=== PATIENT | female | born 1955 | race Caucasian/White ===

== ENCOUNTER 2020-01-16 17:12 | Emergency (ER) | payer BC, SELFPAY ==
[2020-01-16 17:18] VITALS: BP 151/87; PULSE 102; RESP 16; TEMP 36.9; O2SAT 98
--- NOTE | 2020-01-16 17:31 | ED.GENADULT ---
HPI - General Adult General Chief complaint: Upper Respiratory Infection Stated complaint: sinus infection Time Seen by Provider: 01/16/20 17:31 Source: patient and RN notes reviewed Mode of arrival: ambulatory Limitations: no limitations History of Present Illness HPI narrative: 64-year-old female presents with complaints of upper respiratory infection, sneezing, some facial congestion, facial pressure, and headache (not the worst of her life) for the past 14 days. Meclizine and OTC medication without relief. Symptoms increased over the past 4 days with intermittent sore throat and dizziness when bending over (none now). No facial swelling. Intermittent dry cough without chest congestion. Nasal congestion without rhinorrhea. Sore throat. Pain is bilateral. Hurts to swallow. No high fevers, drooling, neck or throat swelling. No voice change. No nausea, vomiting, or abdominal pain. Tolerating liquids well. Denies chills, dyspnea, difficulty swallowing, jaw pain, dental pain, foreign body sensation, and rash. No chest pain or shortness of breath. Hysterectomy. Remains active. The patient reports she had a POSITIVE antibiotic test on 12/11/19 and completed appropriate quarantine but was diagnosed with COVID-19. The patient reports she is not waiting for the results of a COVID-19 lab test. The patient reports she do not have fever, chills, weakness, fatigue, myalgia, or facial swelling. The patient reports she do not have a new or worsening cough or shortness of breath. Denies chest pain. The patient reports she do not have any rhinorrhea, nausea, vomiting, abdominal pain, and diarrhea. Tolerating po intake well. Denies recent traveling. Denies concerns for COVID-19 or exposures been home since [id number] order except for essential household needs, medical needs (extremely careful at site per patient is where she had antibiotics tested), and return home. At this time, patient is not suspected of having COVID-19. Some parts of this dictation were generated by voice recognition software and may contain typographical and/or grammatical inaccuracies. Related Data Home Medications Medication Instructions Recorded Confirmed amitriptyline 25 mg PO HS 01/16/20 01/16/20 atorvastatin 20 mg PO DAILY 01/16/20 01/16/20 azathioprine 50 mg PO DAILY 01/16/20 01/16/20 insulin detemir U-100 [Levemir 30 unit SUBCUT HS 01/16/20 01/16/20 FlexTouch U-100 Insuln] levothyroxine 150 mcg PO DAILY 01/16/20 01/16/20 metformin 1,000 mg PO BID 01/16/20 01/16/20 semaglutide [Ozempic] 0.25 mg SUBCUT WEEKLY 01/16/20 01/16/20 spironolactone 25 mg PO BID 01/16/20 01/16/20 tramadol 50 mg PO Q6H PRN 01/16/20 01/16/20 venlafaxine 150 mg PO DAILY 01/16/20 01/16/20 Allergies Allergy/AdvReac Type Severity Reaction Status Date / Time latex Allergy Unknown Rash Verified 01/16/20 17:29 adhesive tape AdvReac Mild Other Verified 01/16/20 17:29 Review of Systems Review of Systems: Narrative: CONSTITUTIONAL: Denies fever, chills, sweats. EYES: Denies visual changes, redness, discharge. ENT: Complains of congestion facial congestion and pressure, intermittent sore throat. Denies rhinorrhea, otalgia. CARDIOVASCULAR: Denies chest pain, palpitations, edema. RESPIRATORY: Denies dyspnea, wheezing. Complains of intermittent dry cough. GASTROINTESTINAL: Denies abdominal pain, nausea, vomiting, diarrhea. GENITOURINARY: Denies dysuria, hematuria, abnormal discharge SKIN: Denies rash or itching. MUSCULOSKELETAL: Denies acute back pain, joint pain, or myalgia. NEUROLOGIC: Denies numbness, or focal weakness. Complains of intermittent RIVERA. PSYCHIATRIC: Denies anxiety or depression. All other systems reviewed are negative, except as documented in HPI and below. [facility] Past Medical History Medical History (Updated 01/17/20 @ 00:00 by Background Daemon) Autoimmune hepatitis Depression Diabetes Hypercholesteremia Hypertension Hypothyroidism Melanoma Rheumatoid
== END 2020-01-16 17:54 | disposition home or self-care (01) ==
PROVIDERS: Emergency Provider Nurse Practitioner Family; PCP Internal Medicine
DX: J32.9 Chronic sinusitis, unspecified (principal); E11.9 Type 2 diabetes mellitus without complications; I10 Essential (primary) hypertension; E78.00 Pure hypercholesterolemia, unspecified; E03.9 Hypothyroidism, unspecified; K75.4 Autoimmune hepatitis; I01.1 Acute rheumatic endocarditis; Z87.440 Personal history of urinary (tract) infections; Z79.84 Long term (current) use of oral hypoglycemic drugs; Z79.4 Long term (current) use of insulin
CPT/HCPCS: 99213; G0463

== ENCOUNTER 2021-03-19 13:09 | Emergency (ER) | payer BC, SELFPAY ==
--- NOTE | 2021-03-19 13:15 | ED.URI ---
HPI - URI/Sore Throat General Chief Complaint: Upper Respiratory Infection Stated Complaint: sinus and raw nose Time Seen by Provider: 03/19/21 13:25 Source: patient and RN notes reviewed Mode of arrival: ambulatory Limitations: no limitations History of Present Illness HPI Narrative: 65-year-old female presents concern for sinus congestion, nasal drainage, sinus pain for 7 days. She reports she has been using [id number] medications, including nasal rinses and Vaseline in the nose with little relief. She denies fever, cough, shortness of breath, sore throat, body aches, chills, sweats. MD elicited complaint: nasal congestion Related Data Home Medications Medication Instructions Recorded Confirmed atorvastatin 20 mg PO DAILY 01/16/20 03/19/21 azathioprine 150 mg PO DAILY 01/16/20 03/19/21 insulin detemir U-100 [Levemir 30 unit SUBCUT HS 01/16/20 03/19/21 FlexTouch U-100 Insuln] metformin 1,000 mg PO BID 01/16/20 03/19/21 semaglutide [Ozempic] 0.25 mg SUBCUT WEEKLY 01/16/20 03/19/21 spironolactone 50 mg PO BID 01/16/20 03/19/21 tramadol 150 mg PO Q8H PRN 01/16/20 03/19/21 venlafaxine 150 mg PO DAILY 01/16/20 03/19/21 ergocalciferol (vitamin D2) 1,250 mcg PO WEEKLY 03/19/21 03/19/21 levothyroxine 137 mcg PO DAILY 03/19/21 03/19/21 Allergies Allergy/AdvReac Type Severity Reaction Status Date / Time latex Allergy Unknown Rash Verified 03/19/21 13:19 nitrofurantoin Allergy Unknown Unknown Verified 03/19/21 13:19 [From Macrodantin] adhesive tape AdvReac Mild Other Verified 03/19/21 13:19 Review of Systems Review of Systems: CONSTITUTIONAL: Denies malaise, chills, sweats, or fever. EYES: Denies visual changes, redness, or discharge. ENT: Reports rhinorrhea, congestion, sinus pain. Denies otalgia and sore throat. CARDIOVASCULAR: Denies chest pain, palpitations, or edema. RESPIRATORY: Denies cough or dyspnea. GASTROINTESTINAL: Denies abdominal pain, nausea, vomiting, diarrhea SKIN: Denies rash or itching. MUSCULOSKELETAL: Denies myalgia. NEUROLOGIC: Denies headache. All systems reviewed & are unremarkable except as noted in HPI and below PMFSH Past Medical History Medical History (Updated 03/19/21 @ 13:33 by Leah Castillo NP) Autoimmune hepatitis Depression Diabetes Hypercholesteremia Hypertension Hypothyroidism Melanoma Rheumatoid aortitis TMJ (temporomandibular joint disorder) surgery Umbilical hernia UTI (urinary tract infection) Surgical History Surgical History (Updated 01/16/20 @ 18:00 by MELISSA Buchanan) History of arthroscopic knee surgery Bilateral History of cholecystectomy History of hernia surgery umbilical History of hysterectomy History of tonsillectomy Hx of appendectomy Family History Family History Other Diabetes mellitus Family history of arthritis Family history of elevated blood lipids Family history of heart disease in male family member before age 55 Family history of malignant neoplasm Hypertension Social History Social History (Updated 01/16/20 @ 17:52 by MELISSA Buchanan) Smoking status: Never smoker Second hand tobacco smoke exposure: Yes Alcohol intake: never Substance use: never Gender identity (if verbalized by the patient): Female Comments At time of signature, agree with nursing past medical, surgical, social and family history. There is no relevant family history pertinent to the presenting complaint Exam Narrative: GENERAL: Well-appearing, well-nourished, and in no acute distress. HEAD: Normocephalic EYES: PERRLA, conjunctivae clear ENT: Nares clear, turbinates edematous and erythematous, purulent discharge. Mucous membranes moist. TM pearly callejas with dull light reflex bilaterally; no tragal tenderness. Oropharynx not erythematous without lesions. Tonsils not enlarged and without exudate, no drooling, no hoarseness, no trismus, uvula midline. NECK: Supple.
[2021-03-19 13:21] VITALS: BP 148/81; PULSE 117; RESP 18; TEMP 36.7; O2SAT 98
[2021-03-19 13:23] VITALS: BP 148/81; PULSE 117; RESP 18; TEMP 36.7; O2SAT 98
== END 2021-03-19 13:35 | disposition home or self-care (01) ==
PROVIDERS: Emergency Provider Nurse Practitioner; PCP Internal Medicine
DX: J01.90 Acute sinusitis, unspecified (principal); K75.4 Autoimmune hepatitis; E11.9 Type 2 diabetes mellitus without complications; E78.00 Pure hypercholesterolemia, unspecified; F32.9 Major depressive disorder, single episode, unspecified; E03.9 Hypothyroidism, unspecified; I10 Essential (primary) hypertension; Z85.820 Personal history of malignant melanoma of skin; M06.9 Rheumatoid arthritis, unspecified
CPT/HCPCS: 99213; G0463

== ENCOUNTER 2022-03-05 13:30 | Emergency (ER) | payer MEDICARE, SELFPAY ==
--- NOTE | ~2022-03-05 | XR_ITS ---
EXAMINATION: XR ribs LT 2V DATE: 03/05/2022 13:57 INDICATION: Left anterior rib pain post fall in bathtub TECHNIQUE: 3 views of the left ribs were obtained. COMPARISON: None FINDINGS: No rib fractures identified. 2 small bilateral calcified pulmonary nodules along with numerous calcif ied splenic nodules consistent with old granulomatous disease. Visualized lungs are otherwise clear w ith no focal airspace opacities, pulmonary edema, pleural effusion or pneumothorax. Cholecystectomy c lips in right upper quadrant. Mild lumbar levorotoscoliosis. IMPRESSION: 1. No left rib fracture or acute cardiopulmonary disease. Reviewed, dictated and finalized at location B.
--- NOTE | 2022-03-05 13:34 | ED.GENADULT ---
HPI - General Adult General Chief complaint: Fall Stated complaint: Fell and hit side and ribs left side. Covid Time Seen by Provider: 03/05/22 14:08 Source: patient Mode of arrival: ambulatory Limitations: no limitations History of Present Illness HPI narrative: 66 old female presents concern for left rib pain, under the left breast. Reports this thinks she was getting out of the tub, she slipped and fell and landed on her left side. She reports pain is worse with deep breathing, coughing. She reports she was diagnosed with COVID yesterday. She has taken Tylenol. She denies any other injury from the fall MD complaint: Rib Pain Related Data Home Medications Medication Instructions Recorded Confirmed atorvastatin 20 mg tablet 20 mg PO DAILY 01/16/20 03/05/22 insulin detemir U-100 100 unit/mL 20 unit subcut HS 01/16/20 03/05/22 (3 mL) subcutaneous pen (Levemir FlexTouch U-100 Insulin) metformin 1,000 mg tablet 1,000 mg PO BID 01/16/20 03/05/22 semaglutide 0.25 mg or 0.5 mg (2 0.5 mg subcut WEEKLY 01/16/20 03/05/22 mg/1.5 mL) subcutaneous pen injector (Ozempic) venlafaxine 150 mg 150 mg PO QAM 01/16/20 03/05/22 capsule,extended release 24 hr ergocalciferol (vitamin D2) 1,250 1,250 mcg PO WEEKLY 03/19/21 03/05/22 mcg (50,000 unit) capsule alendronate 70 mg tablet 1 tablet PO WEEKLY 03/05/22 03/05/22 amitriptyline 25 mg tablet 1 tablet PO QHS 03/05/22 03/05/22 cyclobenzaprine 5 mg tablet 1 tablet PO TID PRN Muscle Spasm 03/05/22 03/05/22 levothyroxine 112 mcg tablet 1 tablet PO DAILY 03/05/22 03/05/22 losartan 100 mg tablet 1 tablet PO DAILY 03/05/22 03/05/22 metoprolol tartrate 50 mg tablet 1 tablet PO BID 03/05/22 03/05/22 nirmatrelvir 300 mg (150 mg x 6 tablet PO DAILY 03/05/22 03/05/22 2)-ritonavir 100 mg tablet (EUA) (Paxlovid 300 mg () venlafaxine 75 mg tablet 1 tablet PO QPM 03/05/22 03/05/22 Allergies Allergy/AdvReac Type Severity Reaction Status Date / Time latex Allergy Unknown Rash Verified 03/05/22 14:08 nitrofurantoin Allergy Unknown Unknown Verified 03/05/22 14:08 [From Macrodantin] adhesive tape AdvReac Mild Rash Verified 03/05/22 14:08 Review of Systems Review of Systems: CONSTITUTIONAL: Denies malaise, chills, sweats, or fever. CARDIOVASCULAR: Denies chest pain, palpitations, or edema. RESPIRATORY: Denies cough or dyspnea. GASTROINTESTINAL: Denies abdominal pain SKIN: Denies bruising, redness, swelling, open skin MUSCULOSKELETAL: Reports left rib pain under the left breast All systems reviewed & are unremarkable except as noted in HPI and below PMFSH Past Medical History Medical History (Updated 03/05/22 @ 14:17 by Leah Castillo NP) Autoimmune hepatitis Depression Diabetes Hypercholesteremia Hypertension Hypothyroidism Melanoma Rheumatoid aortitis TMJ (temporomandibular joint disorder) surgery Umbilical hernia UTI (urinary tract infection) Surgical History Surgical History (Updated 01/16/20 @ 18:00 by MELISSA Buchanan) History of arthroscopic knee surgery Bilateral History of cholecystectomy History of hernia surgery umbilical History of hysterectomy History of tonsillectomy Hx of appendectomy Family History Family History Other Diabetes mellitus Family history of arthritis Family history of elevated blood lipids Family history of heart disease in male family member before age 55 Family history of malignant neoplasm Hypertension Social History Social History (Updated 01/16/20 @ 17:52 by MELISSA Buchanan) Smoking status: Never smoker Second hand tobacco smoke exposure: Yes Alcohol intake: never Substance use: never Gender identity (if verbalized by the patient): Female Comments At time of signature, agree with nursing past medical, surgical, social and family history. There is no relevant family history pertinent to the presenting complaint Exam N
[2022-03-05 13:43] VITALS: BP 139/83; PULSE 73; RESP 16; TEMP 35.5; O2SAT 99
== END 2022-03-05 14:25 | disposition home or self-care (01) ==
PROVIDERS: Emergency Provider Nurse Practitioner; PCP Internal Medicine
DX: S20.212A Contusion of left front wall of thorax, initial encounter (principal); W01.0XXA Fall on same level from slipping, tripping and stumbling without subsequent striking against object, initial encounter; K75.4 Autoimmune hepatitis; E11.9 Type 2 diabetes mellitus without complications; E78.00 Pure hypercholesterolemia, unspecified; I10 Essential (primary) hypertension; E03.9 Hypothyroidism, unspecified; Z85.820 Personal history of malignant melanoma of skin; M06.9 Rheumatoid arthritis, unspecified; F32.A Depression, unspecified; Z79.4 Long term (current) use of insulin
CPT/HCPCS: 71100; 99213; G0463

== ENCOUNTER 2022-11-12 19:06 | Emergency (ER) | payer MEDICARE, SELFPAY ==
--- NOTE | ~2022-11-12 | XR_ITS ---
XR chest 2V DATE: 11/12/2022 19:42 INDICATION: Cough, shortness of breath. Weakness. TECHNIQUE: 2 views COMPARISON: 03/05/2022 left ribs FINDINGS: Heart size is within normal range. Is mild aortic tortuosity. No hilar or mediastinal enlar gement. No pulmonary infiltrate or consolidation, pleural effusion or pulmonary vascular congestion or pneumo thorax is detected. Diffuse osteopenia. IMPRESSION: No active cardiopulmonary disease Reviewed, dictated and finalized at location A.
[2022-11-12 19:08] VITALS: BP 112/97; PULSE 94; RESP 16; TEMP 36.3; O2SAT 98
--- NOTE | 2022-11-12 19:35 | ED.SOB ---
HPI - SOB/Dyspnea General Chief Complaint: Shortness of Breath/Dyspnea Stated Complaint: Shortness Of Breath Time Seen by Provider: 11/12/22 19:28 Source: patient, RN notes reviewed and old records reviewed Mode of arrival: ambulatory Limitations: no limitations History of Present Illness HPI Narrative: he67 year old female accompanied by spouse presents to express care with complaints of being short of breath and having cough, congestion and runny nose for about 3 days and feels weak.Patient reports that she recently had UTI and finished Cipro last week, states had colonoscopy prior to getting urinary tract infection. Patient states that she has had fevers chills sweats and low grade temps. Patient thinks maybe she still has ongoing bladder infection. has some urinary incontinency especially when she coughs. Patient states that she got in bathtub yesterday and couldn't get out and just had heart stents so he couldn't help her had to call fire department to get her out of tub. Patient reports that she has taken some Mucinex Tylenol for her symptoms. MD elicited complaint: shortness of breath and cough Pertinent past history: other (immunocompromised) Onset (ago): day(s) (3) Known history of: asthma and other (autoimmune hepatitis, biliary cirrhosis) Treatment prior to arrival: other (Mucinex, Tylenol) Related Data Home Medications Medication Instructions Recorded Confirmed atorvastatin 20 mg tablet 20 mg PO DAILY 01/16/20 11/12/22 insulin detemir U-100 100 unit/mL 20 unit subcut HS 01/16/20 11/12/22 (3 mL) subcutaneous pen (Levemir FlexTouch U-100 Insulin) metformin 1,000 mg tablet 1,000 mg PO BID 01/16/20 11/12/22 semaglutide 0.25 mg or 0.5 mg (2 0.5 mg subcut WEEKLY 01/16/20 11/12/22 mg/1.5 mL) subcutaneous pen injector (Ozempic) venlafaxine 150 mg 150 mg PO QAM 01/16/20 11/12/22 capsule,extended release 24 hr ergocalciferol (vitamin D2) 1,250 1,250 mcg PO WEEKLY 03/19/21 11/12/22 mcg (50,000 unit) capsule alendronate 70 mg tablet 1 tablet PO WEEKLY 03/05/22 11/12/22 amitriptyline 25 mg tablet 1 tablet PO QHS 03/05/22 11/12/22 cyclobenzaprine 5 mg tablet 1 tablet PO TID PRN Muscle Spasm 03/05/22 11/12/22 levothyroxine 112 mcg tablet 1 tablet PO DAILY 03/05/22 11/12/22 losartan 100 mg tablet 1 tablet PO DAILY 03/05/22 11/12/22 metoprolol tartrate 50 mg tablet 1 tablet PO BID 03/05/22 11/12/22 venlafaxine 75 mg tablet 1 tablet PO QPM 03/05/22 11/12/22 azathioprine 50 mg tablet mg 11/12/22 budesonide-formoterol HFA 160 inhalation 11/12/22 mcg-4.5 mcg/actuation aerosol inhaler (Symbicort) spironolactone 25 mg tablet mg 11/12/22 Allergies Allergy/AdvReac Type Severity Reaction Status Date / Time latex Allergy Unknown Rash Verified 03/05/22 14:08 nitrofurantoin Allergy Unknown Unknown Verified 03/05/22 14:08 [From Macrodantin] adhesive tape AdvReac Mild Rash Verified 03/05/22 14:08 Review of Systems Review of Systems: CONSTITUTIONAL: Reports malaise, chills, sweats, or fever.weakness EYES: Denies visual changes, redness, or discharge. ENT: Reports rhinorrhea, congestion, no sinus pain, otalgia or sore throat. CARDIOVASCULAR: Denies chest pain, palpitations, or edema. RESPIRATORY: Reports harsh cough.? Reports dyspnea. GASTROINTESTINAL: Denies abdominal pain, nausea, vomiting, diarrhea SKIN: Denies rash or itching. MUSCULOSKELETAL: Generalized myalgia. NEUROLOGIC: Denies headache. All systems reviewed & are unremarkable except as noted in HPI and below PMFSH Past Medical History Medical History Autoimmune hepatitis Depression Diabetes Hypercholesteremia Hypertension Hypothyroidism Melanoma Rheumatoid aortitis TMJ (temporomandibular joint disorder) surgery Umbilical hernia UTI (urinary tract infection) Surgical History Surgical History History of arthroscopi
== END 2022-11-12 20:28 | disposition home or self-care (01) ==
PROVIDERS: Emergency Provider Registered Nurse; PCP Internal Medicine
DX: J06.9 Acute upper respiratory infection, unspecified (principal); E11.9 Type 2 diabetes mellitus without complications; I10 Essential (primary) hypertension; E03.9 Hypothyroidism, unspecified; M06.9 Rheumatoid arthritis, unspecified; Z79.4 Long term (current) use of insulin; Z79.84 Long term (current) use of oral hypoglycemic drugs; Z20.822 Contact with and (suspected) exposure to COVID-19
CPT/HCPCS: 71046; 81003; 87081; 87426; 87804; 87880; 99213; C9803; G0463

== ENCOUNTER 2022-12-07 14:21 | Outpatient (CLI) | payer MEDICARE, SELFPAY ==
[2022-12-07 14:38] LABS: Basophils Percent Auto 0.5 % (0.2-1.2); Eosinophils Absolute Auto 0.2 K/mm3 (0-0.3); Eosinophils Percent Auto 2.2 % (0-4.4); Hemoglobin 12.9 g/dL (12.0-15.0); Immature Granulocyte Absolute 0.05 K/mm3 (0.00-0.031); Immature Granulocyte Percent A 0.6 % (0-0.5); Lymphocytes Absolute Auto 1.92 K/mm3 (0.9-3.2); Lymphocytes Percent Auto 23.2 % (18.3-44.2); Mean Corpuscular HGB Conc 32.3 g/dl (32-36); Mean Corpuscular Hemoglobin 31.6 pg (26-34); Mean Platelet Volume 9.9 fl (7.4-10.4); Monocytes Absolute Auto 0.7 K/mm3 (0.1-0.6); Monocytes Percent Auto 8.8 % (2.6-8.5); Neutrophils Absolute Auto 5.4 K/mm3 (1.3-6.7); Neutrophils Percent Auto 64.7 % (45.5-73.1); Platelet Count Result 405 k/mm3 (150-375); Red Blood Count 4.08 M/mm3 (4.2-5.4); Red Cell Distribution Width 14.5 % (11.5-14.5); White Blood Count 8.3 K/mm3 (4.5-10.0)
[2022-12-07 15:04] LABS: Alanine Aminotransferase 129 U/L (6-35); Albumin Level 4.3 g/dL (3.5-5.1); Alkaline Phosphatase 80 U/L (38-126); Anion Gap 11 mmol/L (8-16); Aspartate Amino Transferase 113 U/L (14-36); Bilirubin,Total 0.5 mg/dL (0.2-1.3); Blood Urea Nitrogen 9 mg/dL (7-17); Calcium 10.1 mg/dL (8.4-10.2); Carbon Dioxide 29 mmol/L (22-30); Chloride 99 mmol/L (98-107); Estimated Glomerular Filt Rate > 60; Glucose 133 mg/dL (65-110); Potassium 3.8 mmol/L (3.4-5.0); Sodium 139 mmol/L (137-145)
[2022-12-07 16:24] LABS: Iron 73 ug/dL (37-170)
[2022-12-07 16:38] LABS: Percent Iron Saturation 19 % (20-50)
[2022-12-08 05:45] LABS: Folic Acid 14.8 ng/mL (2.76->20)
[2022-12-10 08:23] LABS: Methylmalonic Acid 192 nmol/L (87-318)
== END 2022-12-07 14:22 | disposition home or self-care (01) ==
LOC: ANHLAB 14:23
PROVIDERS: PCP Internal Medicine; Visit Provider Internal Medicine Hematology & Oncology
DX: D64.9 Anemia, unspecified (principal)
CPT/HCPCS: 36415; 80053; 82607; 82728; 82746; 83540; 83550; 83921; 84443; 85025

== ENCOUNTER 2023-03-04 16:05 | Emergency (ER) | payer MEDICARE, SELFPAY ==
--- NOTE | 2023-03-04 16:08 | ED.FEMALEGU ---
HPI - Female Genitourinary General Chief complaint: Urogenital-Female Stated complaint: Urinary Problem Source: patient and RN notes reviewed History of Present Illness HPI Narrative: 67 yo F presents to urgent care with complaints of lower pelvic pressure, foul-smelling urine, and urinary frequency this week. Pt states she believes she has a UTI b/c she has been getting them every month. Pt reports having a cardiac cath performed on Tuesday this week and she had to hold her urine at that time. Pt denies any burning with urination. Does report some lower back pain bilaterally. Denies any fevers, chills, chest pain, vomiting, or diarrhea. Pt has been on cefdinir, cipro, and bactrim since December. Pt states she is going to see a new urologist on 03/14. Related Data Home Medications Medication Instructions Recorded Confirmed atorvastatin 20 mg tablet 20 mg PO DAILY 01/16/20 03/04/23 metformin 1,000 mg tablet 1,000 mg PO BID 01/16/20 03/04/23 semaglutide 0.25 mg or 0.5 mg (2 0.5 mg subcut WEEKLY 01/16/20 03/04/23 mg/1.5 mL) subcutaneous pen injector (Ozempic) venlafaxine 150 mg 150 mg PO QAM 01/16/20 03/04/23 capsule,extended release 24 hr levothyroxine 112 mcg tablet 100 mcg PO DAILY 03/05/22 03/04/23 metoprolol tartrate 50 mg tablet 1 tablet PO BID 03/05/22 03/04/23 venlafaxine 75 mg tablet 1 tablet PO QPM 03/05/22 03/04/23 azathioprine 50 mg tablet 100 mg PO DAILY 11/12/22 03/04/23 spironolactone 25 mg tablet 25 mg PO DAILY 11/12/22 03/04/23 Allergies Allergy/AdvReac Type Severity Reaction Status Date / Time latex Allergy Unknown Rash Verified 03/04/23 16:24 nitrofurantoin Allergy Unknown Unknown Verified 03/04/23 16:24 [From Macrodantin] adhesive tape AdvReac Mild Rash Verified 03/04/23 16:24 Review of Systems Review of Systems: Pertinent positives and pertinent negatives per HPI. [facility] Past Medical History Medical History Autoimmune hepatitis Depression Diabetes Hypercholesteremia Hypertension Hypothyroidism Melanoma Rheumatoid aortitis TMJ (temporomandibular joint disorder) surgery Umbilical hernia UTI (urinary tract infection) Surgical History Surgical History History of arthroscopic knee surgery Bilateral History of cholecystectomy History of hernia surgery umbilical History of hysterectomy History of tonsillectomy Hx of appendectomy Family History Family History Other Diabetes mellitus Family history of arthritis Family history of elevated blood lipids Family history of heart disease in male family member before age 55 Family history of malignant neoplasm Hypertension Social History Social History Smoking status: Never smoker Second hand tobacco smoke exposure: Yes Alcohol intake: never Substance use: never Living arrangements: with family Occupation/Education: retired Gender identity (if verbalized by the patient): Female Comments At the time of my signature, I reviewed and agree with the nursing past medical, surgical, social, and family history. There is no relevant family history pertinent to the patient complaint. Exam Narrative: GENERAL: This is a well-nourished, well-developed patient, in no apparent distress. HEAD: normocephalic, atraumatic. EYES: Sclera clear/white. Vision is grossly intact. EARS: External ears normal, auditory canals clear and without drainage, TMs normal without perforation. Hearing grossly intact. NOSE: External nose normal with no obvious nasal discharge, nares without redness, no rhinorrhea. THROAT: Mucous membranes moist, posterior pharynx clear. NECK: Neck supple, non-tender without lymphadenopathy, masses or thyromegaly. CARDIOVASCULAR: Regular rate and rhythm without murmurs, gallops, or rubs. R
[2023-03-04 16:11] VITALS: BP 127/73; PULSE 72; RESP 14; TEMP 36.6; O2SAT 98
[2023-03-04 16:27] VITALS: BP 127/73; PULSE 72; RESP 14; TEMP 36.6; O2SAT 98
== END 2023-03-04 16:56 | disposition home or self-care (01) ==
PROVIDERS: Emergency Provider Nurse Practitioner Family; PCP Internal Medicine
DX: N39.0 Urinary tract infection, site not specified (principal); K75.4 Autoimmune hepatitis; E11.9 Type 2 diabetes mellitus without complications; Z79.84 Long term (current) use of oral hypoglycemic drugs; E78.00 Pure hypercholesterolemia, unspecified; I10 Essential (primary) hypertension; E03.9 Hypothyroidism, unspecified; M06.9 Rheumatoid arthritis, unspecified; Z85.820 Personal history of malignant melanoma of skin; F32.A Depression, unspecified
CPT/HCPCS: 81003; 87086; 87088; 99213; G0463

== ENCOUNTER 2023-06-27 15:13 | Emergency (ER) | payer MEDICARE, SELFPAY ==
[2023-06-27 15:20] VITALS: BP 119/68; PULSE 80; RESP 16; TEMP 36.9; O2SAT 98
[2023-06-27 15:26] VITALS: BP 119/68; PULSE 80; RESP 16; TEMP 36.9; O2SAT 98
--- NOTE | 2023-06-27 15:36 | ED.FEMALEGU ---
HPI - Female Genitourinary General Chief complaint: Urogenital-Female Stated complaint: Poss uti Source: patient and RN notes reviewed Mode of arrival: ambulatory Limitations: no limitations History of Present Illness HPI Narrative: 67-year-old female with history of recurrent UTIs, diabetes, rheumatoid arthritis, presented for complaint of urinary frequency, urgency, dysuria for 1 month. Also reports incontinence at night and occasional dribbling. Patient states symptoms started after she was cleared by her urologist to return in 1 year. States she was unable to be seen by the urologist today. She took leftover cephalexin about 2 weeks ago. She denies hematuria, abdominal pain, nausea vomiting, fevers or chills. Related Data Home Medications Medication Instructions Recorded Confirmed atorvastatin 20 mg tablet 20 mg PO DAILY 01/16/20 06/27/23 metformin 1,000 mg tablet 1,000 mg PO BID 01/16/20 06/27/23 venlafaxine 150 mg 150 mg PO QAM 01/16/20 03/04/23 capsule,extended release 24 hr levothyroxine 112 mcg tablet 100 mcg PO DAILY 03/05/22 06/27/23 metoprolol tartrate 50 mg tablet 1 tablet PO BID 03/05/22 06/27/23 venlafaxine 75 mg tablet 1 tablet PO QPM 03/05/22 03/04/23 azathioprine 50 mg tablet 100 mg PO DAILY 11/12/22 06/27/23 spironolactone 25 mg tablet 25 mg PO DAILY 11/12/22 03/04/23 losartan 100 mg tablet 100 mg PO DAILY 06/27/23 06/27/23 Allergies Allergy/AdvReac Type Severity Reaction Status Date / Time latex Allergy Unknown Rash Verified 06/27/23 15:24 nitrofurantoin Allergy Unknown Unknown Verified 06/27/23 15:24 [From Macrodantin] adhesive tape AdvReac Mild Rash Verified 06/27/23 15:24 Review of Systems Review of Systems: CONSTITUTIONAL: Denies body aches, fever, chills, or sweats. CARDIOVASCULAR: Denies chest pain, palpitations, or edema. RESPIRATORY: Denies cough or dyspnea. GASTROINTESTINAL: Denies abdominal pain, nausea, vomiting, or diarrhea. GENITOURINARY: Reports dysuria, frequency, urgency, denies hematuria, flank pain SKIN: Denies rash, itching, or wounds. MUSCULOSKELETAL: Denies back pain or myalgia. [facility] Past Medical History Medical History Autoimmune hepatitis Depression Diabetes Hypercholesteremia Hypertension Hypothyroidism Melanoma Rheumatoid aortitis TMJ (temporomandibular joint disorder) surgery Umbilical hernia UTI (urinary tract infection) Surgical History Surgical History History of arthroscopic knee surgery Bilateral History of cholecystectomy History of hernia surgery umbilical History of hysterectomy History of tonsillectomy Hx of appendectomy Family History Family History Other Diabetes mellitus Family history of arthritis Family history of elevated blood lipids Family history of heart disease in male family member before age 55 Family history of malignant neoplasm Hypertension Social History Social History Smoking status: Never smoker Second hand tobacco smoke exposure: Yes Alcohol intake: never Substance use: never Living arrangements: with family Occupation/Education: retired Gender identity (if verbalized by the patient): Female Comments At time of signature, I have reviewed and agree with nursing past medical, surgical, social and family history unless otherwise noted. Please see nursing chart for further information. There is no relevant family history pertinent to the presenting complaint Exam Narrative: GENERAL: Well-appearing ENT: Mucous membranes pink and moist. NECK: Normal AROM. Supple. CHEST: No respiratory distress. Clear to auscultation. HEART: Regular rate and rhythm. ABDOMEN: Soft, nontender, nondistended, normal active bowel sounds. No CVA tenderness MUSCULOSKELETAL: No b
== END 2023-06-27 15:56 | disposition home or self-care (01) ==
PROVIDERS: Emergency Provider Nurse Practitioner Family; PCP Internal Medicine
DX: N39.0 Urinary tract infection, site not specified (principal); B96.20 Unspecified Escherichia coli [E. coli] as the cause of diseases classified elsewhere; E11.9 Type 2 diabetes mellitus without complications; M06.9 Rheumatoid arthritis, unspecified; E78.00 Pure hypercholesterolemia, unspecified; I10 Essential (primary) hypertension; E03.9 Hypothyroidism, unspecified; Z85.820 Personal history of malignant melanoma of skin
CPT/HCPCS: 81003; 87077; 87086; 87186; 99213; G0463

== ENCOUNTER 2023-08-10 13:24 | Emergency (ER) | payer MEDICARE, SELFPAY ==
--- NOTE | ~2023-08-10 | XR_ITS ---
EXAMINATION: XR chest 2V DATE: 08/10/2023 14:03 INDICATION: Cough TECHNIQUE: PA and lateral views of the chest are obtained. COMPARISON: 11/12/2022 FINDINGS: The lungs are free of acute opacities. No pleural effusion or pneumothorax. The cardiomedia stinal silhouette is normal. There is mild thoracic spondylosis. Calcified pulmonary nodules are cons istent with old granulomatous disease. IMPRESSION: 1. No acute cardiopulmonary abnormality. Reviewed, dictated and finalized at location [facility]. [facility]
--- NOTE | 2023-08-10 13:29 | ED.URI ---
HPI - URI/Sore Throat General Chief Complaint: Upper Respiratory Infection Stated Complaint: throat/cough Time Seen by Provider: 08/10/23 13:46 Source: patient and RN notes reviewed Mode of arrival: ambulatory Limitations: no limitations History of Present Illness HPI Narrative: 67-year-old female presents with concern for 2 week history of cough, nasal drainage, sore throat, nasal congestion. She reports she has felt worse in the last 4-5 days now cough has become productive. She reports general malaise, she has been feeling dizzy with this illness. Reports she has taken [id number] medications without relief. She has not had a fever. Reports she is able to drink plenty of fluids and is urinating normally. She is not having nausea or vomiting or diarrhea MD elicited complaint: cough and sore throat Related Data Home Medications Medication Instructions Recorded Confirmed atorvastatin 20 mg tablet 20 mg PO DAILY 01/16/20 08/10/23 metformin 1,000 mg tablet 1,000 mg PO BID 01/16/20 08/10/23 metoprolol tartrate 50 mg tablet 1 tablet PO BID 03/05/22 08/10/23 venlafaxine 75 mg tablet 1 tablet PO QPM 03/05/22 08/10/23 azathioprine 50 mg tablet 100 mg PO DAILY 11/12/22 08/10/23 spironolactone 25 mg tablet 25 mg PO DAILY 11/12/22 08/10/23 losartan 100 mg tablet 100 mg PO DAILY 06/27/23 08/10/23 cephalexin 250 mg capsule 250 mg PO DAILY 08/10/23 08/10/23 insulin detemir U-100 100 unit/mL unit subcut 08/10/23 08/10/23 (3 mL) subcutaneous pen (Levemir FlexPen) semaglutide 1 mg/dose (4 mg/3 mL) mg subcut 08/10/23 subcutaneous pen injector (Ozempic) Allergies Allergy/AdvReac Type Severity Reaction Status Date / Time latex Allergy Unknown Rash Verified 08/10/23 13:47 nitrofurantoin Allergy Unknown Unknown Verified 08/10/23 13:47 [From Macrodantin] adhesive tape AdvReac Mild Rash Verified 08/10/23 13:47 Review of Systems Review of Systems: CONSTITUTIONAL: Reports malaise, fatigue, lightheadedness. Denies fever. EYES: Denies visual changes, redness, or discharge. ENT: Reports rhinorrhea, congestion, and sore throat. CARDIOVASCULAR: Denies chest pain, palpitations, or edema. RESPIRATORY: Reports productive cough. Denies dyspnea. GASTROINTESTINAL: Denies abdominal pain, nausea, vomiting, diarrhea SKIN: Denies rash or itching. MUSCULOSKELETAL: Reports myalgia. NEUROLOGIC: Denies headache. All systems reviewed & are unremarkable except as noted in HPI and below PMFSH Past Medical History Medical History Autoimmune hepatitis Depression Diabetes Hypercholesteremia Hypertension Hypothyroidism Melanoma Rheumatoid aortitis TMJ (temporomandibular joint disorder) surgery Umbilical hernia UTI (urinary tract infection) Surgical History Surgical History History of arthroscopic knee surgery Bilateral History of cholecystectomy History of hernia surgery umbilical History of hysterectomy History of tonsillectomy Hx of appendectomy Family History Family History Other Diabetes mellitus Family history of arthritis Family history of elevated blood lipids Family history of heart disease in male family member before age 55 Family history of malignant neoplasm Hypertension Social History Social History Smoking status: Never smoker Second hand tobacco smoke exposure: Yes Alcohol intake: never Substance use: never Living arrangements: with family Occupation/Education: retired Gender identity (if verbalized by the patient): Female Comments At time of signature, agree with nursing past medical, surgical, social and family history. There is no relevant family history pertinent to the presenting complaint Exam Narrative: GENERAL: Nontoxic-appearing, well-nourished,
[2023-08-10 13:32] VITALS: BP 130/80; PULSE 110; RESP 18; TEMP 36.4; O2SAT 98
== END 2023-08-10 14:38 | disposition home or self-care (01) ==
PROVIDERS: Emergency Provider Nurse Practitioner; PCP Internal Medicine
DX: J32.9 Chronic sinusitis, unspecified (principal); J40 Bronchitis, not specified as acute or chronic; Z20.822 Contact with and (suspected) exposure to COVID-19; E11.9 Type 2 diabetes mellitus without complications; E78.00 Pure hypercholesterolemia, unspecified; I10 Essential (primary) hypertension; E03.9 Hypothyroidism, unspecified; K75.4 Autoimmune hepatitis
CPT/HCPCS: 71046; 87081; 87880; 99213; G0463

== ENCOUNTER 2024-01-06 14:00 | Emergency (ER) | payer MEDICARE, SELFPAY ==
[2024-01-06 14:07] VITALS: BP 137/86; PULSE 100; RESP 18; TEMP 36.2; O2SAT 98
--- NOTE | 2024-01-06 15:09 | ED.FEMALEGU ---
HPI - Female Genitourinary General Chief complaint: Urogenital-Female Stated complaint: Urinary Problem Time Seen by Provider: 01/06/24 15:09 Source: patient, RN notes reviewed and old records reviewed Mode of arrival: ambulatory Limitations: no limitations History of Present Illness HPI Narrative: 68-year-old female presents to the [facility] with complaints frequency can urgency and burning for 4 days. Related Data Home Medications Medication Instructions Recorded Confirmed atorvastatin 20 mg tablet 20 mg PO DAILY 01/16/20 08/10/23 metformin 1,000 mg tablet 1,000 mg PO BID 01/16/20 08/10/23 metoprolol tartrate 50 mg tablet 1 tablet PO BID 03/05/22 08/10/23 venlafaxine 75 mg tablet 1 tablet PO QPM 03/05/22 08/10/23 azathioprine 50 mg tablet 100 mg PO DAILY 11/12/22 08/10/23 spironolactone 25 mg tablet 25 mg PO DAILY 11/12/22 08/10/23 losartan 100 mg tablet 100 mg PO DAILY 06/27/23 08/10/23 cephalexin 250 mg capsule 250 mg PO DAILY 08/10/23 08/10/23 insulin detemir U-100 100 unit/mL unit subcut 08/10/23 08/10/23 (3 mL) subcutaneous pen (Levemir FlexPen) semaglutide 1 mg/dose (4 mg/3 mL) mg subcut 08/10/23 subcutaneous pen injector (Ozempic) Allergies Allergy/AdvReac Type Severity Reaction Status Date / Time latex Allergy Unknown Rash Verified 08/10/23 13:47 nitrofurantoin Allergy Unknown Unknown Verified 08/10/23 13:47 [From Macrodantin] adhesive tape AdvReac Mild Rash Verified 08/10/23 13:47 Review of Systems Review of Systems: All systems reviewed & are unremarkable except as noted in HPI and below Constitutional: Constitutional: Reports no additional constitutional complaints Eyes: Eyes: Reports no additional eye complaints ENT: Reports system reviewed and no additional complaints, except as documented Cardiovascular: Cardiovascular: Reports no additional cardiovascular complaints, Denies chest pain and Denies dyspnea Respiratory: Respiratory: Reports no additional respiratory complaints, Denies chest congestion, Denies cough and Denies dyspnea Gastrointestinal: Gastrointestinal: Reports no additional gastrointestinal complaints, Denies abdominal pain, Denies nausea and Denies vomiting Genitourinary: Genitourinary: Reports as per HPI and Reports dysuria Musculoskeletal: Musculoskeletal: Reports no additional musculoskeletal complaints Integumentary/Breasts: Skin/Breast: Reports system reviewed and no additional complaints, except as docu Neurologic: Reports system reviewed and no additional complaints, except as documented Psychiatric: Psychiatric: Reports no additional psychiatric complaints Allergic/Immunologic: Allergic/Immunologic: Reports no additional allergic/immunologic complaints PMFSH Past Medical History Medical History Autoimmune hepatitis Depression Diabetes Hypercholesteremia Hypertension Hypothyroidism Melanoma Rheumatoid aortitis TMJ (temporomandibular joint disorder) surgery Umbilical hernia UTI (urinary tract infection) Surgical History Surgical History History of arthroscopic knee surgery Bilateral History of cholecystectomy History of hernia surgery umbilical History of hysterectomy History of tonsillectomy Hx of appendectomy Family History Family History Other Diabetes mellitus Family history of arthritis Family history of elevated blood lipids Family history of heart disease in male family member before age 55 Family history of malignant neoplasm Hypertension Social History Social History Smoking status: Never smoker Second hand tobacco smoke exposure: Yes Alcohol intake: never Substance use: never Living arrangements: with family Occupation/Education: retired Gender identity (if verbalized by the patient):
== END 2024-01-06 15:25 | disposition home or self-care (01) ==
PROVIDERS: Emergency Provider Nurse Practitioner; PCP Internal Medicine
DX: N39.0 Urinary tract infection, site not specified (principal); B96.5 Pseudomonas (aeruginosa) (mallei) (pseudomallei) as the cause of diseases classified elsewhere; K75.4 Autoimmune hepatitis; E11.9 Type 2 diabetes mellitus without complications; Z79.4 Long term (current) use of insulin; Z79.84 Long term (current) use of oral hypoglycemic drugs; E78.00 Pure hypercholesterolemia, unspecified; I10 Essential (primary) hypertension; E03.9 Hypothyroidism, unspecified; M06.9 Rheumatoid arthritis, unspecified; Z85.820 Personal history of malignant melanoma of skin
CPT/HCPCS: 81003; 87077; 87086; 87088; 87186; 99213; G0463